=== PATIENT | male | born 1985 | race African-American/Black ===

== ENCOUNTER 2020-07-05 11:33 | Emergency (ER) | payer MEDICAID ==
[~2020-07-05] VITALS: Ht 188 cm; Wt 83.9 kg
[2020-07-05 11:40] VITALS: BP 131/85
[2020-07-05] MEDS ORDERED: HYDROCODONE/APAP 5/325MG TABLET PO ONE (12:00)
[2020-07-05] MEDS ORDERED: HYDROCODONE/APAP 5/325MG TABLET ONE (12:12)
--- NOTE | 2020-07-05 12:23 | NUR ---
ORTHO CALLED DR. ALVAERZ
--- NOTE | 2020-07-05 12:44 | NUR ---
Patient discharged to home in stable condition. Written and verbal after care instructions given. Patient verbalizes understanding of instruction. Pt ambulatory with a steady gait with aide from crutches that pt brought with him prior to arrival
== END 2020-07-05 12:45 | disposition home or self-care (01) ==
LOC: ER 11:37
DX: S82.092A Other fracture of left patella, initial encounter for closed fracture (principal); S80.212A Abrasion, left knee, initial encounter; Z60.2 Problems related to living alone; V00.138A Other skateboard accident, initial encounter; Y93.51 Activity, roller skating (inline) and skateboarding; Y92.89 Other specified places as the place of occurrence of the external cause; Y99.8 Other external cause status
CPT/HCPCS: 73552; 73564-TC